=== PATIENT | male | born 1955 | race Caucasian/White ===

== ENCOUNTER → 2019-08-21 | Day surgery (SDC) | payer MEDICARE, BC ==
[~2019-08-21] MED LIST: AMLODIPINE-BEN1 EAC5 PO; FENOFIBRATE145 MG PO; FENTANYL CITRATE/PF 100MCG/2 ML INJ ONE; METFORMIN HCL500 MG PO; MIDAZOLAM HCL 2 MG/2 ML VIAL ONE; NIACIN500 M2 PO; OR PHACO EYE KIT ONE; PRAVASTATIN SOD40 MG PO; PREOP PHACO EYE KIT ONE
[2019-08-21 15:30] VITALS: BP 128/72
== END | disposition home or self-care (01) ==
LOC: OR 11:31
PROVIDERS: ATTEND Ophthalmology
DX: H25.12 Age-related nuclear cataract, left eye (principal); E11.9 Type 2 diabetes mellitus without complications; I10 Essential (primary) hypertension; E78.5 Hyperlipidemia, unspecified; Z79.84 Long term (current) use of oral hypoglycemic drugs
CPT/HCPCS: 36415; 66984; 82948; J2250; J3010; V2632

== ENCOUNTER → 2019-09-04 | Day surgery (SDC) | payer MEDICARE, BC ==
[2019-09-04 13:15] VITALS: BP 134/89
== END | disposition home or self-care (01) ==
LOC: OR 10:36
PROVIDERS: ATTEND Ophthalmology
DX: H25.11 Age-related nuclear cataract, right eye (principal); I10 Essential (primary) hypertension; E11.9 Type 2 diabetes mellitus without complications; E78.5 Hyperlipidemia, unspecified; K21.9 Gastro-esophageal reflux disease without esophagitis; Z79.84 Long term (current) use of oral hypoglycemic drugs
CPT/HCPCS: 36415; 66984; 82948; J2250; J3010